=== PATIENT | female | born 1965 | race Caucasian/White ===

== ENCOUNTER 2017-02-15 15:12 | Emergency (ER) | payer BC ==
--- NOTE | ~2017-02-15 | ER ---
PATIENT'S NAME: VIRAL SANTIAGO [facility] AGE: 51 Y [address] ROOM: [place] [address] LOCATION: ED ADMIT DATE: 02/15/2017 ER/Outpatient Report DISCHARGE DATE: 02/15/2017 FAMILY PHYSICIAN: Kiana Blood MD ATTENDING PHYSICIAN: Philipp Cruz Time of Arrival: 1520 hours. Time of Exam: 1520 hours. CHIEF COMPLAINT: Left-sided pain. HISTORY OF PRESENT ILLNESS: The patient states she was awoke this morning at 3 o'clock in the morning with left flank pain. It has continued throughout the day. She has had some frequency of her urine and pain with urination. Denies having fever or chills. States she has been nauseated, but no vomiting. Had a normal bowel movement approximately 1 hour prior to arrival. She states she has had pain like this before when she has had a kidney stone. She had been feeling fine prior to today. ALLERGIES: SULFA. CURRENT MEDICATIONS: On the chart and reviewed by me. PAST MEDICAL HISTORY: Hypertension, GERD, kidney stones, elevated cholesterol, and peripheral edema. PAST SURGERIES: Lithotripsy, cholecystectomy, and vaginal surgery. SOCIAL HISTORY: She presents to the ER tonight accompanied by her . She denies use of tobacco, drugs, or alcohol. REVIEW OF SYSTEMS: Negative other than those mentioned in the HPI. PHYSICAL EXAMINATION: VITAL SIGNS: She weighed 119.8 kg. Blood pressure is 129/80, pulse of 70, respirations 20, temperature of 97.9 tympanic, and O2 saturation was 99% on room air. GENERAL: She is awake, alert, and oriented x4. PATIENT'S NAME: VIRAL SANTIAGO [facility] AGE: 51 Y [address] ROOM: [place] [address] LOCATION: ED ADMIT DATE: 02/15/2017 ER/Outpatient Report DISCHARGE DATE: 02/15/2017 FAMILY PHYSICIAN: Kiana Blood MD ATTENDING PHYSICIAN: Philipp Cruz SKIN: [place], warm, and dry. RESPIRATIONS: Even and nonlabored. ABDOMEN: Soft, nondistended. Bowel sounds are present. She is tender to palpate in the left flank area. EMERGENCY ROOM COURSE: Saline lock was initiated. Fluids of normal saline were started at a wide- open rate. She was given Zofran 4 mg IV and Toradol 30 mg IV. LABORATORY DATA AND X-RAYS: Lab work was drawn. CBC is within normal limits. Chem panel is within normal limits. Lactate was 1.3. Procalcitonin was normal. A CT stone protocol was completed, radiologist reports she has a 2-mm kidney stone in the left proximal ureter, it is nonobstructing. After the CT, the patient states she is feeling much better. She was able to get up to the bathroom and gives a clean-catch UA, it showed 25 leukocytes, but is negative for nitrites, there is 250 of blood with full field, white count of the urine is only 2-5, epithelials large 10-20. Fluids were infused. The patient was informed of the diagnosis. She states she is having some discomfort, but not as bad as she did before. She was given Nelsonia 5/325 x1 tablet. IMPRESSION: Kidney stone. PLAN: Home, rest, fluids. Prescription was written for Nelsonia for pain. She is to follow up with her primary provider in the next 2 to 3 days to get in touch with a urologist. She verbalized understanding. MEENA PETE APRN FOR MD USDHA OROZCO/valdo /[id number] d: 02/15/17 2302 t: 02/25/17 0632, OUTPATIENT REPORT
[2017-02-15 15:44] LABS: BASOPHIL % 0.5 %; EOSINOPHIL # 0.1 K/uL (0.0-0.5); EOSINOPHIL % 1.7 %; HEMATOCRIT 37.2 % (33.0-46.0); HEMOGLOBIN 12.5 g/dL (10.0-15.0); IMMATURE GRANULOCYTE % 0.1 %; LYMPHOCYTE # 2.5 K/uL (0.8-4.0); MCH 30.5 pg (27.0-34.0); MCHC 33.6 gm/dL (32.0-36.5); MCV 90.7 fl (83.0-98.0); MONOCYTE # 0.4 K/uL (0.0-1.0); MONOCYTE % 5.2 %; MPV 10.7 fl (9.4-12.4); NEUTROPHIL # (ANC) 4.5 K/uL (1.8-7.8); NEUTROPHIL % 59.5 %; NRBC % 0 /100WBC (0-0.00); PLATELET COUNT 241 K/uL (150-450); RDW-CV 12.9 % (11.9-14.6); WBC 7.5 K/uL (4.0-11.0)
[2017-02-15 16:11] LABS: ALBUMIN 3.5 gm/dL (3.5-5.0); ANION GAP 11.8 (10.0-19.0); CALCIUM 8.6 mg/dL (8.5-10.5); POTASSIUM 3.8 mMol/L (3.7-5.1); TOTAL BILIRUBIN 0.3 mg/dL (0.0-1.5); TOTAL PROTEIN 6.9 g/dL (6.0-8.4)
[2017-02-15 16:49] LABS: BILIRUBIN URINE NEGATIVE (NEGATIVE); BLOOD URINE 250 /UL (NEGATIVE); COLOR URINE YELLOW (YELLOW); GLUCOSE URINE NEGATIVE (NEGATIVE); KETONE URINE NEGATIVE (NEGATIVE); LEUKOCYTES URINE 25 /UL (NEGATIVE); NITRITE URINE NEGATIVE (NEGATIVE); PROTEIN URINE NEGATIVE (NEGATIVE); SPEC GRAVITY URINE 1.015 (1.003-1.035); TURBIDITY URINE 2+ (CLEAR); UROBILINOGEN URINE NORMAL (NORMAL)
[2017-02-15 17:02] LABS: BACTERIA URINE MODERATE (NEGATIVE); GRANULAR CASTS URINE 0-2 #/LPF (NEGATIVE); RBC URINE FULL FIELD #/HPF (NEGATIVE)
== END 2017-02-15 17:20 | disposition disaster alternative care site (69) ==
LOC: GMED 15:12
PROVIDERS: Nurse Practitioner Family
DX: N20.1 Calculus of ureter (principal); I10 Essential (primary) hypertension; K21.9 Gastro-esophageal reflux disease without esophagitis; E78.00 Pure hypercholesterolemia, unspecified; Z90.49 Acquired absence of other specified parts of digestive tract; Z98.890 Other specified postprocedural states; Z88.2 Allergy status to sulfonamides; Z79.899 Other long term (current) drug therapy
CPT/HCPCS: J1885; J2405; J7030